=== PATIENT | female | born 1985 | race Caucasian/White ===

== ENCOUNTER 2020-09-10 13:31 | Emergency (ER) | payer BC, SELFPAY ==
--- NOTE | ~2020-09-10 | XR_ITS ---
EXAMINATION: XR chest 2V DATE: 09/10/2020 14:22 INDICATION: Sharp left chest pain. TECHNIQUE: Frontal and lateral views of the chest were obtained. COMPARISON: None. FINDINGS: The chest demonstrates clear lungs without pneumonia, pleural effusion, or pneumothorax. Th e heart size is normal. IMPRESSION: 1. No acute cardiopulmonary disease. Reviewed, dictated and finalized at location A.
--- NOTE | ~2020-09-10 | CT_ITS ---
EXAMINATION: CTA chest PE protocol DATE: 09/10/2020 19:54 INDICATION: Chest pain and shortness of breath TECHNIQUE: Computed tomography angiography (CTA) of the chest was performed with 100 mL Omnipaque-350 intravenous contrast timed to evaluate the pulmonary arteries. Coronal maximum intensity projection 3D-reconstructions were created by the technologist. Automated exposure control and iterative reconst ruction technique were employed. Exam dose: 250.86 mGy-cm total exam DLP. COMPARISON: 09/10/2020 2 view chest FINDINGS: There is diagnostic contrast enhancement of the pulmonary arteries and no evidence of pulmo nary embolism. No thoracic aortic aneurysm. No hilar or mediastinal mass lesion or lymphadenopathy. Normal heart size. No pericardial or pleural effusion. Normal morphology of the adrenal glands. Included upper abdominal structures are unremarkable. No pulmonary infiltrate or consolidation or pulmonary mass lesion. No suspicious osteolytic or osteoblastic lesions. IMPRESSION: No evidence of pulmonary embolism; no significant abnormality Reviewed, dictated and finalized at [facility]. Reviewed, dictated and finalized at location A.
--- NOTE | 2020-09-10 13:43 | ECG_ITS ---
Measurements Intervals [place] Rate: 63 P: 57 MS: 144 QRS: 12 QRSD: 91 T: 17 QT: 380 QTc: 391 Interpretive Statements SINUS RHYTHM DELAYED PRECORDIAL R/S TRANSITION VOLTAGE CRITERIA FOR LVH MINIMAL Q WAVES- HIGH LATERAL LEADS BORDERLINE T WAVE ABNORMALITY- ANTERIOR LEADS BORDERLINE ECG Electronically Signed On 09-10-2020 13:52:46 CDT by Familia Tariq D.O.
[2020-09-10 13:53] VITALS: BP 135/94; PULSE 80; RESP 18; TEMP 36.6; O2SAT 100
[2020-09-10 14:03] LABS: Basophils Percent Auto 0.4 % (0.2-1.2); Eosinophils Absolute Auto 0.1 K/mm3 (0-0.3); Eosinophils Percent Auto 0.9 % (0-4.4); Hematocrit 38.1 % (37.0-47.0); Hemoglobin 12.8 g/dL (12.0-15.0); Immature Granulocyte Absolute 0.01 K/mm3 (0.00-0.031); Immature Granulocyte Percent A 0.1 % (0-0.5); Lymphocytes Absolute Auto 2.04 K/mm3 (0.9-3.2); Lymphocytes Percent Auto 27.6 % (18.3-44.2); Mean Corpuscular HGB Conc 33.6 g/dl (32-36); Mean Corpuscular Hemoglobin 29.8 pg (26-34); Mean Corpuscular Volume 88.8 fl (80-100); Mean Platelet Volume 9.6 fl (7.4-10.4); Monocytes Absolute Auto 0.6 K/mm3 (0.1-0.6); Monocytes Percent Auto 7.6 % (2.6-8.5); Neutrophils Absolute Auto 4.7 K/mm3 (1.3-6.7); Neutrophils Percent Auto 63.4 % (45.5-73.1); Platelet Count Result 288 k/mm3 (150-375); Red Blood Count 4.29 M/mm3 (4.2-5.4); Red Cell Distribution Width 12.9 % (11.5-14.5); White Blood Count 7.4 K/mm3 (4.5-10.0)
[2020-09-10 14:13] LABS: INR 0.9; Prothrombin Time 12.7 Seconds (11.1-14.7)
[2020-09-10 14:14] LABS: Partial Thromboplastin Time 27.6 SECONDS (22.3-36.8)
[2020-09-10 14:23] LABS: Anion Gap 10 mmol/L (8-16); Blood Urea Nitrogen 14 mg/dL (7-17); Calcium 9.9 mg/dL (8.4-10.2); Carbon Dioxide 27 mmol/L (22-30); Chloride 106 mmol/L (98-107); Estimated CRCL calculation 82 ml/min; Estimated Glomerular Filt Rate > 60; Glucose 99 mg/dL (65-105); Potassium 3.9 mmol/L (3.4-5.0); Sodium 143 mmol/L (137-145)
[2020-09-10 14:35] LABS: Troponin I < 0.012 ng/mL (0.000-0.034)
[2020-09-10 19:23] VITALS: BP 128/87; PULSE 72; RESP 18; O2SAT 100
[2020-09-10 19:40] LABS: Add Urine Microscopic? YES; Appearance Urine Clear (Clear); Bilirubin Urine Negative (Negative); Blood Urine 1+ (Negative); Color Urine Colorless (Yellow); Glucose Urine UA Negative (Negative); Ketones Urine Trace mg/dL (Negative); Leukocyte Esterase Ur Negative LEU/UL (Negative); Nitrate Urine Negative (Negative); Protein Urine Negative (Negative); Urobilinogen Urine Negative mg/dL (<2.0)
[2020-09-10] MEDS: KETOROLAC 30 MG/ML VIAL (*BKC) IV PUSH (19:41)
[2020-09-10 19:49] LABS: Specific Grav Ur 1.003 (1.001-1.035)
[2020-09-10 19:50] LABS: Bacteria Urine 1+ /hpf; RBC Urine 0-2 /hpf (0-2); Squamous Epithelial Cell Urine Few /hpf (Few)
[2020-09-10 20:02] LABS: Troponin I < 0.012 ng/mL (0.000-0.034)
[2020-09-10 20:04] LABS: D Dimer 0.27 ug/mL (<0.48)
[2020-09-10 20:13] VITALS: BP 136/84; PULSE 68; RESP 16; O2SAT 100
--- NOTE | 2020-09-10 20:14 | ED.CHESTPAIN ---
HPI - Chest Pain General Chief Complaint: Chest Pain Stated Complaint: Chest Pain Time Seen by Provider: 09/10/20 18:59 History of Present Illness HPI narrative: Patient is a 35-year-old female who presents ER with chest pain or shortness of breath. Patient reports began feeling short of breath about 1 month ago. Last couple weeks she has developed significant chest pain over the anterior part of her chest. She has pain with inspiration. No fevers or chills or sweats. No productive cough. No hemoptysis. She has had no lower extremity swelling. No family history of blood clots or personal history of blood clots. No long distance travel. Denies trauma. She does take control. No history of coronary disease. Reports she notices discomfort when she goes to bed. Had Covid in June and has been doing well since then. Related Data Allergies Allergy/AdvReac Type Severity Reaction Status Date / Time codeine AdvReac Unknown NAAUSEA Verified 09/17/17 09:38 Review of Systems Review of Systems: All systems reviewed & are unremarkable except as noted in HPI and below Constitutional: Constitutional: Denies chills, Denies fever(s) and Denies weakness ENT: Denies nasal congestion and Denies sore throat Cardiovascular: Cardiovascular: Reports chest pain, Denies rapid heart rate and Denies radiating jaw, neck or arm pain Respiratory: Respiratory: Denies cough, Denies dyspnea and Denies wheezing Comments: Pain with deep breath Gastrointestinal: Gastrointestinal: Denies abdominal pain, Denies nausea and Denies vomiting PMFSH Past Medical History Medical History (Updated 09/10/20 @ 20:26 by Adis Malave MD) Healthy female adult Surgical History Surgical History (Updated 09/10/20 @ 20:15 by Adis Malave MD) History of arthroscopic knee surgery Family History Family History (Updated 11/29/18 @ 10:41 by DOCTOR UNKNOWN) Grandparent Diabetes mellitus Hypertension Cerebrovascular accident Social History Social History Smoking status: Never smoker Second hand tobacco smoke exposure: No Alcohol intake: current Exam Narrative: Exam Narrative: GENERAL: Well-appearing, well-nourished, and in no acute distress. HEAD: Normocephalic, atraumatic. ENT: Mucous membranes moist. CHEST: Clear to auscultation. No respiratory distress. HEART: Regular rate and rhythm. Normal peripheral pulses. ABDOMEN: Soft, nontender, nondistended. EXTREMITIES: Normal range of motion. No edema. SKIN: Warm, dry, no rash. NEURO: Alert and oriented x3. Course Course Emergency Course: Modest improvement with Toradol. Informed of results. Discharge home. Vital Signs Vital signs: Vital Signs Temperature 97.8 F 09/10/20 13:53 Pulse Rate 80 09/10/20 13:53 Respiratory Rate 18 09/10/20 13:53 Blood Pressure 135/94 H 09/10/20 13:53 Pulse Oximetry 100 09/10/20 13:53 Temperature 97.8 F 09/10/20 13:53 Pulse Rate 68 09/10/20 20:13 Respiratory Rate 16 09/10/20 20:13 Blood Pressure 136/84 09/10/20 20:13 Pulse Oximetry 100 09/10/20 20:13 MDM - Chest Pain Lab Data Result diagrams: 09/10/20 13:57 09/10/20 13:57 Labs: Lab Results 09/10/20 09/10/20 09/10/20 Range/Units 13:57 13:57 13:57 WBC 7.4 (4.5-10.0) K/mm3 RBC 4.29 (4.2-5.4) M/mm3 Hgb 12.8 (12.0-15.0) g/dL Hct 38.1 (37.0-47.0) % MCV 88.8 (80-100) fl MCH 29.8 (26-34) pg MCHC 33.6 (32-36) g/dl RDW 12.9 (11.5-14.5) % Plt Count 288 (150-375) k/mm3 MPV 9.6 (7.4-10.4) fl Immature Gran % (Auto) 0.1 (0-0.5) % Neut % (Auto) 63.4 (45.5-73.1) % Lymph % (Auto) 27.6 (18.3-44.2) % [place] % (Auto) 7.6 (2.6-8.5) % Eos % (Auto) 0.9 (0-4.4) % Baso % (Auto) 0.4 (0.2-1.2) % Lymph # (Auto) 2.04 (0.9-3.2) K/mm3 [place] # (Auto) 0.6 (0.1-0.6) K/mm3 Eos # (Auto) 0.1 (0-0.3) K/mm3 Baso # (Auto) 0.0 (0.0-0.1) K/mm3 A
[2020-09-10 20:50] VITALS: BP 117/64; PULSE 72; RESP 16; O2SAT 100
== END 2020-09-10 20:50 | disposition home or self-care (01) ==
PROVIDERS: Emergency Medicine; Emergency Provider Emergency Medicine; PCP Nurse Practitioner
DX: R09.1 Pleurisy (principal); R94.31 Abnormal electrocardiogram [ECG] [EKG]
CPT/HCPCS: 36415; 71046; 71275; 80048; 81001; 81025; 84484; 85025; 85380; 85610; 85730; 93005; 96374; 99284; J1885; Q9967

== ENCOUNTER → 2021-08-22 13:40 | Outpatient (CLI) | payer BC, SELFPAY ==
--- NOTE | ~2021-08-22 | CT_ITS ---
EXAMINATION: CT abdomen pelvis wo con DATE: 08/22/2021 14:16 INDICATION: Bilateral flank pain TECHNIQUE: Computed tomography (CT) of the abdomen and pelvis was performed without intravenous contr ast. Automated exposure control and iterative reconstruction technique were employed. Exam dose: 539 .60 mGy-cm total exam DLP. COMPARISON: KUB FINDINGS: The lung bases are clear. Normal heart size. No pericardial or pleural effusion. The liver, gallbladder, bile ducts, spleen, pancreas, pancreatic duct, and adrenal glands and kidneys are unremarkable. No urinary tract calculus or hydroureteronephrosis. 2.5 cm left ovarian cyst. The urinary bladder, uterus and adnexal areas are otherwise unremarkable. Normal appendix. No bowel obstruction, bowel wall thickening, pneumatosis or intraperitoneal free air . Normal caliber of the abdominal aorta. No intraperitoneal or retroperitoneal or pelvic mass lesion or adenopathy or ascites. Transitional lumbosacral vertebra with sacralization and pseudoarthrosis on the left. No suspicious o steolytic or osteoblastic lesions. IMPRESSION: No urinary tract calculus or hydroureteronephrosis Normal appendix 2.5 cm left ovarian cyst Transitional lumbosacral vertebra Reviewed, dictated and finalized at [facility]. Reviewed, dictated and finalized at location A.
--- NOTE | ~2021-08-22 | XR_ITS ---
EXAMINATION: XR abdomen/kub 1V INDICATION: Calculus of the kidney TECHNIQUE: Supine views of the abdomen were obtained on 2 radiographs. COMPARISON: 11/29/2018 FINDINGS: No urinary tract calculi are identified. There are phleboliths of the right pelvis. The bow el gas pattern is normal. A moderate volume of colonic stool is present. IMPRESSION: 1. No urolithiasis identified. Reviewed, dictated and finalized at location B.
== END ==
PROVIDERS: PCP Physician Assistant; Visit Provider Urology
DX: N20.0 Calculus of kidney (principal); N83.202 Unspecified ovarian cyst, left side; Q76.49 Other congenital malformations of spine, not associated with scoliosis
CPT/HCPCS: 74018; 74176

== ENCOUNTER 2021-10-21 00:26 | Day surgery (SDC) | payer BC, SELFPAY ==
[2021-10-11 13:03] VITALS: BMI 32.0
--- NOTE | 2021-10-21 07:44 | P.PNAN_ITS ---
Anes - Initial Pre Proc Eval Procedure: Operation Date: 10/21/21 14:00 Proposed Procedures p Esophagogastroduodenoscopy - Jerry Garcias MD Date/Time: 10/21/21 07:44 Surgeon: Jerry Garcias MD Pre Op Diagnosis: n & v Patient Data Age: 36 Gender: F Height: 1.6 m Weight: 82 kg Allergies Allergy/AdvReac Type Severity Reaction Status Date / Time codeine AdvReac Unknown NAUSEA Verified 10/21/21 10:17 Home Medications Medication Instructions Recorded Confirmed Type drospirenone (contraceptive) 4 mg 4 mg PO DAILY 10/11/21 10/21/21 History (28) tablet (Slynd) Patient hx anesthesia problems: none Family hx anesthesia problems: none Results Review: All pre-operative results and documents have been reviewed as part of the pre- operative evaluation. [facility] Past Medical History Medical History Healthy female adult Surgical History Surgical History History of arthroscopic knee surgery Family History Family History Grandparent Diabetes mellitus Hypertension Cerebrovascular accident Kidney disease Mother Hypertension Kidney disease Social History Social History Smoking status: Never smoker Second hand tobacco smoke exposure: No Alcohol intake: current Drinks per week: 10 Alcohol use details: socially Substance use: never Substance use type: does not use Living arrangements: with family Gender identity (if verbalized by the patient): Female Sexual Orientation (if Verbalized by the Patient): Straight or Heterosexual Spiritual care concerns: No Agree to blood products: Yes Anes - Eval Final PreProcedure Day of Procedure 10/21/21 07:44 Patient weight: obese Heart: regular rate and rhythm Lungs: clear to auscultation and normal air movement Airway: Mallampati scale Neurological: alert and oriented Last oral intake: >/= 8 hours ASA classification: II Emergent: no Anesthetic plan: proceed Anesthesia type and monitoring: general and standard monitoring Results Review: All pre-operative results and documents have been reviewed as part of the pre- operative evaluation. Informed Consent: The patient's anesthetic plan and its attendant risks and benefits were discussed with the patient/family/POA. Questions were solicited and answers provided to the satisfaction of the patient/family/POA.
[2021-10-21 10:18] VITALS: BP 133/92; PULSE 100; RESP 18; TEMP 36.2; O2SAT 99
[2021-10-21] MEDS: LACTATED RINGERS 1,000 ML 150 ML IV CONT (10:31)
--- NOTE | 2021-10-21 10:31 | PM.HPGS ---
History of Present Illness History of Present Illness Consent: Risks, benefits, and alternatives have been discussed and questions answered. Patient agrees to proceed with procedure. Chief complaint: n & v Narrative: Floresita Denise is a 36 year old female with nausea and vomiting times 2 years. She reports nausea daily that is worse after she eating or drinking. At times, feels like foods and liquid sits in mid-chest area. She reports intermittent vomiting at least 3 days a week that normally occurs in the morning or evening hours. Emesis occurs 15 minutes to 2 hours after eating and contains undigested food Review of Systems Review of Systems: All systems reviewed & are unremarkable except as noted in HPI and below PMFSH Past Medical History Medical History Healthy female adult Surgical History Surgical History History of arthroscopic knee surgery Family History Family History Grandparent Diabetes mellitus Hypertension Cerebrovascular accident Kidney disease Mother Hypertension Kidney disease Social History Social History Smoking status: Never smoker Second hand tobacco smoke exposure: No Alcohol intake: current Drinks per week: 10 Alcohol use details: socially Substance use: never Substance use type: does not use Living arrangements: with family Gender identity (if verbalized by the patient): Female Sexual Orientation (if Verbalized by the Patient): Straight or Heterosexual Spiritual care concerns: No Agree to blood products: Yes Meds Home Medications and Allergies Home Medications Medication Instructions Recorded Confirmed Type drospirenone (contraceptive) 4 mg PO DAILY 10/11/21 10/21/21 History [Slynd] Allergies Allergy/AdvReac Type Severity Reaction Status Date / Time codeine AdvReac Unknown NAUSEA Verified 10/21/21 10:17 Vital Signs Vital Signs - 24 hr 10/21/21 10:18 Temperature 36.2 C L Pulse Rate 100 Respiratory Rate 18 Blood Pressure 133/92 H Pulse Oximetry 99 Exam Const: General: alert Orientation/consciousness: patient oriented x3 Resp: Auscultation: clear to auscultation bilaterally Cardio: Rhythm: regular rhythm GI: GI Palp: Yes Soft to palpation and No Tenderness to palpation present (GI) Neuro: General: patient oriented x3 Assessment and Plan Assessment and plan (1) Nausea and vomiting: Code(s): R11.2 - Nausea with vomiting, unspecified Status: Acute Assessment and Plan: EGD with possible biopsy or dilatation or cautery.
[2021-10-21] MEDS: ONDANSETRON INJ 4 MG/2 ML VIAL IV PUSH (10:35)
[2021-10-21 11:23] VITALS: BP 108/73; PULSE 104; RESP 18; O2SAT 97
[2021-10-21 11:33] VITALS: BP 125/89; PULSE 84; RESP 18; O2SAT 99
== END 2021-10-21 11:50 | disposition home or self-care (01) ==
PROVIDERS: PCP Physician Assistant; Visit Provider Internal Medicine Gastroenterology
PROC: 0DJ08ZZ Inspection of Upper Intestinal Tract, Via Natural or Artificial Opening Endoscopic (ICD-10-PCS; CPT 43235; principal; 2021-10-21 14:00)
DX: K21.00 Gastro-esophageal reflux disease with esophagitis, without bleeding (principal); K44.9 Diaphragmatic hernia without obstruction or gangrene; E66.9 Obesity, unspecified; Z68.31 Body mass index [BMI] 31.0-31.9, adult
CPT/HCPCS: 43239; 87081; 88305; J2405; J2704; J7120

== ENCOUNTER 2021-11-28 08:06 | Outpatient (CLI) | payer BC, SELFPAY ==
--- NOTE | ~2021-11-28 | NM_ITS ---
EXAM: NM gastric emptying study DATE: 11/28/2021 12:53 CDT INDICATION: Nausea with vomiting TECHNIQUE: A gastric emptying study was performed using the methodology of Jennifer DA SILVA, et al. J Nucl Med 2007; 48:568-572. The patient was given a meal consisting of 2 scrambled eggs labeled with 0.937 mCi Tc-99m sulfur colloid, 2 slices of toast, two packages of jam, and approximately 120 mL of water . Simultaneous anterior and posterior 1-min images of the abdomen were obtained with the patient supi ne at multiple time points over a total period of 4 hours. The geometric mean of anterior and posteri or views was determined, and the percentage retention was calculated for each time point. COMPARISON: None. FINDINGS: Gastric retention of the radiotracer-labeled meal was 55%, 32%, and 4% at the 1-hour, 2-ho ur, and 4-hour time points, respectively. With this technique, apparent rapid gastric emptying is sug gested by <30% gastric retention at 1 hour. Delayed gastric emptying is defined by gastric retention of >90% at 1 hour, >60% retention at 2 hours, or >10% retention at 4 hours. IMPRESSION: 1. Normal gastric emptying. Reviewed, dictated and finalized at location A. IMPRESSION: 1. Normal gastric emptying.
== END 2021-11-28 08:07 | disposition home or self-care (01) ==
PROVIDERS: PCP Physician Assistant; Visit Provider Internal Medicine Gastroenterology
DX: R11.2 Nausea with vomiting, unspecified (principal)
CPT/HCPCS: 78264; A9541